=== PATIENT | female | born 1945 | race Caucasian/White ===

== ENCOUNTER 2019-10-06 12:11 | Emergency (ER) | payer MEDICARE, SELFPAY ==
[2019-10-06 12:12] VITALS: BP 131/74; PULSE 87; RESP 18; TEMP 36.3; O2SAT 98; BMI 25.0
--- NOTE | 2019-10-06 12:25 | ED_ITS ---
Entered by [id number], acting as scribe for Otis Luong DO Oct 06, 2019 12:11 HPI - Chest Pain General: Chief Complaint: Chest Pain Stated Complaint: chest pain Time Seen by Provider: 10/06/19 12:18 PFSH ED PFSH: Statuses (acute, chronic, etc) shown below reflect problem list status as previously entered and may not be historically accurate Medical History (Updated 10/06/19 @ 16:21 by Otis Luong DO) History of chronic hypertension (Acute) Surgical History (Updated 10/06/19 @ 12:41 by Judith Ramirez) History of tonsillectomy (Acute) Social History Smoking and tobacco status: former smoker Course Vital Signs: Vital signs: Vital Signs Temperature 97.4 F L 10/06/19 12:12 Pulse Rate 87 10/06/19 12:12 Respiratory Rate 18 10/06/19 12:12 Blood Pressure 131/74 10/06/19 12:12 Pulse Oximetry 98 10/06/19 12:12 MDM - Chest Pain Lab Data: Labs: Lab Results 10/06/19 10/06/19 10/06/19 Range/Units 13:03 13:03 13:03 WBC 9.6 (4.0-10.0) 10^3/ uL RBC 4.48 (4.1-5.3) 10^6/u L Hgb 13.6 (11.5-15.3) g/dL Hct 41.7 (37.0-47.0) % MCV 93.1 (81-99) fL MCH 30.4 (28.0-34.0) pg MCHC 32.6 (30.0-36.0) g/dL RDW 12.6 (12.1-15.1) % Plt Count 245 (130-400) 10^3/c mm MPV 10.5 H (7.4-10.4) fL Neut % (Auto) 71.4 % Lymph % (Auto) 21.3 % Cass % (Auto) 5.8 % Eos % (Auto) 0.7 % Baso % (Auto) 0.4 % Neut # (Auto) 6.8 (1.8-7.7) 10^3/u L Lymph # (Auto) 2.0 (0.8-4.8) 10^3/u L Cass # (Auto) 0.6 (0.2-0.9) 10^3/u L Eos # (Auto) 0.1 (0.0-0.8) 10^3/u L Baso # (Auto) 0.0 (0.0-0.1) 10^3/u L Nucleated RBC % (a uto) 0 % Nucleated RBCs # 0.0 /100WBC PT 13.10 (10.5-13.3) SECO NDS INR 0.99 (0.8-1.2) D-Dimer 0.68 H (0-0.59) ug/mIFE U Sodium 142 (136-145) mmol/L Potassium 4.2 (3.5-5.1) mmol/L Chloride 104 (98-107) mmol/L Carbon Dioxide 23 (22-29) mmol/L Anion Gap 19.2 H (5-19) BUN 28 H (8-23) mg/dL Creatinine 1.2 H (0.5-0.9) mg/dL Glucose 120 H (74-106) mg/dL Calcium 9.8 (8.5-10.5) mg/dL Total Bilirubin 0.3 (0.15-1.2) mg/dL AST 18 (0-32) U/L ALT 16 (0-33) U/L Alkaline Phosphata se 90 (35-105) IU/L Troponin T Baselin e (0-10) ng/mL Troponin T 120 Min kake (0-10) ng/mL Delta Troponin T (0-10) ABS# NT-Pro-B Natriuret Pep 137 (0-450) pg/mL Total Protein 8.3 (6.6-8.7) g/dL Albumin 4.4 (3.5-5.2) g/dL Globulin 3.9 (1.3-4.6) g/dL 10/06/19 10/06/19 Range/Units 13:03 15:40 WBC (4.0-10.0) 10^3/ uL RBC (4.1-5.3) 10^6/u L Hgb (11.5-15.3) g/dL Hct (37.0-47.0) % MCV (81-99) fL MCH (28.0-34.0) pg MCHC (30.0-36.0) g/dL RDW (12.1-15.1) % Plt Count (130-400) 10^3/c mm MPV (7.4-10.4) fL Neut % (Auto) % Lymph % (Auto) % Cass % (Auto) % Eos % (Auto) % Baso % (Auto) % Neut # (Auto) (1.8-7.7) 10^3/u L Lymph # (Auto) (0.8-4.8) 10^3/u L Cass # (Auto) (0.2-0.9) 10^3/u L Eos # (Auto) (0.0-0.8) 10^3/u L Baso # (Auto) (0.0-0.1) 10^3/u L Nucleated RBC % (a uto) % Nucleated RBCs # /100WBC PT (10.5-13.3) SECO NDS INR (0.8-1.2) D-Dimer (0-0.59) ug/mIFE U Sodium (136-145) mmol/L Potassium (3.5-5.1) mmol/L Chloride (98-107) mmol/L Carbon Dioxide (22-29) mmol/L Anion Gap (5-19) BUN (8-23) mg/dL Creatinine (0.5-0.9) mg/dL Glucose (74-106) mg/dL Calcium (8.5-10.5) mg/dL Total Bilirubin (0.15-1.2) mg/dL AST (0-32) U/L ALT (0-33) U/L Alkaline Phosphata se (35-105) IU/L Troponin T Baselin e 18 H (0-10) ng/mL Troponin T 120 Min kake 18.08 H (0-10) ng/mL Delta Troponin T 0.08 (0-10) ABS# NT-Pro-B Natriuret Pep (0-450) pg/mL Total Protein (6.6-8.7) g/dL Albumin (3.5-5.2) g/dL Globulin (1.3-4.6) g/dL Discharge Plan Discharge Clinical Impression: Chest pain Qualifiers: Chest pain type: unspecified Qualified Code(s): R07.9 - Chest pain, unspecified Condition: Stable Prescriptions: No Action Vitamin C 1,000 mg Tablet 500 mg PO DAILY RF: 0 Aspir-81 81 mg Tablet,Delayed Release (Dr/Ec) 81 mg PO DAILY RF: 0 amlodipine 10 mg tablet 10 mg PO DAILY RF: 0 hydrochlorothiazide 25 mg tablet 25 mg PO DAILY RF: 0 ergocalciferol (vitamin D2) 1,250 mcg (50,000 unit) capsule See Rx Instructions .ROUTE .COMPLEX RF: 0 olmesartan 40 mg tablet 40 mg PO DAILY RF: 0 Discharge Orders: Discharge Order (Routine); Ordered 10/06/19 Ordered By: Otis Luong Referrals: Suzie Hoffmann DO [Primary Care Provider] - Coding Level of Care Code ED Contact Lens Edge Buffer for [facility] The documentation recorded by the scribe, [id number], accurately reflects the service I personally performed and the decisions made by Ag palacios Donald P, DO Oct 06, 2019 12:11
--- NOTE | 2019-10-06 12:39 | ED_ITS ---
Entered by Judith Ramirez, acting as scribe for Otis Luong DO HPI - Chest Pain General: Chief Complaint: Chest Pain Stated Complaint: chest pain Time Seen by Provider: 10/06/19 12:18 Source: patient and family Mode of arrival: ambulatory Limitations: no limitations History of Present Illness: HPI narrative: 74 yo female presents with chest pain. 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 pt states exertion made this worse and sitting down made this better. MD complaint: chest pain Onset (ago): hour(s) (just correctional officer captain) Timing of current episode: constant and now resolved Prior episodes: No Onset: during exertion (shopping) Pain location: substernal Pain radiation: none Severity: moderate Quality: sharp Relieving factors: nothing Exacerbating factors: exertion Associated symptoms: Reports dyspnea and other Treatment prior to arrival: none Review of Systems General: Reports: 10 or more systems reviewed and unremarkable except in HPI and below Resp: Reports: shortness of breath PFSH ED PFSH: Statuses (acute, chronic, etc) shown below reflect problem list status as previously entered and may not be historically accurate Medical History (Updated 10/06/19 @ 16:21 by Otis Luong DO) History of chronic hypertension (Acute) Surgical History (Updated 10/06/19 @ 12:41 by Judith Ramirez) History of tonsillectomy (Acute) Social History Smoking and tobacco status: former smoker Physical Exam Const: COMMON NORMALS: no apparent distress, average body habitus, oriented x3, no limitations, healthy appearing, alert and well nourished HENMT: COMMON NORMALS: normocephalic, head/scalp atraumatic, hearing grossly normal bilaterally, external ears normal, EAC's normal, TM's normal bilaterally, external nose normal, nasal mucous membranes and turbinates normal, moist oral mucous membranes, oropharynx normal, dentition normal and gingiva normal HEAD & SCALP: normocephalic and atraumatic NOSE: external nose normal and nasal m ucous membranes and turbinates normal EXTERNAL EAR: Yes external ears normal EXTERNAL AUDITORY CANAL: EAC's normal TYMPANIC MEMBRANE: TM's normal bilaterally Eye: COMMON NORMALS: PERRL, EOMs intact bilaterally, conjunctivae normal, no scleral icterus, no papilledema, normal visual moran by confrontation and fundi normal bilaterally CONJUNCTIVA: Yes conjunctivae normal PUPIL: Yes PERRL DIRECT OPHTHALMOSCOPY: Yes no papilledema and Yes fundi normal bilaterally Neck/C-Spine: COMMON NORMALS: full ROM, no lymphadenopathy, supple, no meningeal signs, no JVD, thyroid normal and no carotid bruits THYROID: thyroid normal Resp: COMMON NORMALS: normal respiratory effort, no retractions, no use of accessory muscles, clear to auscultation bilaterally and percussion normal AUSCULTATION: clear to auscultation bilaterally PERCUSSION: percussion normal Cardio: COMMON NORMALS: no JVD, regular rate, regular rhythm, S1 normal heart sound, S2 normal heart sound, no gallops, no clicks, no murmurs, no rub and peripheral pulses 2+ throughout RATE: regular rate RHYTHM: regular rhythm HEART SOUNDS: S1 normal and S2 normal PERIPHERAL PULSES: pulses 2+ throughout GI: COMMON NORMALS: normal to inspection, nondistended, normoactive bowel sounds, soft to palpation, non-tender, no hepatosplenomegaly, no masses and no bruits PALPATION: Yes soft and Yes no hepatosplenomegaly : COMMON NORMALS: Yes no CVA tenderness and Yes external appearance normal BLADDER/KIDNEY EXAM: Yes no CVA tenderness Back/Pelvis: COMMON NORMALS: no CVA tenderness, thoracic and lumbar spine normal to inspection, no thoracic nor lumbar tenderness, thoraco-lumbar ROM normal and straight leg raise negative bilaterally Extremity: COMMON NORMALS: normal to inspection, full ROM, normal capillary refill, no joint enlargement, no clubbing, cyanosis or edema, no calf tenderness and no pedal edema Neuro: COMMON NORMALS: oriented x3 SENSORIUM/ORIENTATION: Yes alert MENINGEAL SIGNS: Yes no meningeal signs Skin: COMMON NORMALS: no rashes or lesions noted, no wounds, skin turgor normal, no jaundice, no petechiae and no mottling GENERAL SKIN EXAM: no rashes or lesions noted and turgor normal Course Vital Signs: Vital signs: Vital Signs Temperature 97.4 F L 10/06/19 12:12 Pulse Rate 87 10/06/19 12:12 Respiratory Rate 18 10/06/19 12:12 Blood Pressure 131/74 10/06/19 12:12 Pulse Oximetry 98 10/06/19 12:12 MDM - Chest Pain Lab Data: Labs: Lab Results 10/06/19 10/06/19 10/06/19 Range/Units 13:03 13:03 13:03 WBC 9.6 (4.0-10.0) 10^3/ uL RBC 4.48 (4.1-5.3) 10^6/u L Hgb 13.6 (11.5-15.3) g/dL Hct 41.7 (37.0-47.0) % MCV 93.1 (81-99) fL MCH 30.4 (28.0-34.0) pg MCHC 32.6 (30.0-36.0) g/dL RDW 12.6 (12.1-15.1) % Plt Count 245 (130-400) 10^3/c mm MPV 10.5 H (7.4-10.4) fL Neut % (Auto) 71.4 % Lymph % (Auto) 21.3 % Garden % (Auto) 5.8 % Eos % (Auto) 0.7 % Baso % (Auto) 0.4 % Neut # (Auto) 6.8 (1.8-7.7) 10^3/u L Lymph # (Auto) 2.0 (0.8-4.8) 10^3/u L [place] # (Auto) 0.6 (0.2-0.9) 10^3/u L Eos # (Auto) 0.1 (0.0-0.8) 10^3/u L Baso # (Auto) 0.0 (0.0-0.1) 10^3/u L Nucleated RBC % (a uto) 0 % Nucleated RBCs # 0.0 /100WBC PT 13.10 (10.5-13.3) SECO NDS INR 0.99 (0.8-1.2) D-Dimer 0.68 H (0-0.59) ug/mIFE U Sodium 142 (136-145) mmol/L Potassium 4.2 (3.5-5.1) mmol/L Chloride 104 (98-107) mmol/L Carbon Dioxide 23 (22-29) mmol/L Anion Gap 19.2 H (5-19) BUN 28 H (8-23) mg/dL Creatinine 1.2 H (0.5-0.9) mg/dL Glucose 120 H (74-106) mg/dL Calcium 9.8 (8.5-10.5) mg/dL Total Bilirubin 0.3 (0.15-1.2) mg/dL AST 18 (0-32) U/L ALT 16 (0-33) U/L Alkaline Phosphata se 90 (35-105) IU/L Troponin T Baselin e (0-10) ng/mL Troponin T 120 Min nina (0-10) ng/mL Delta Troponin T (0-10) ABS# NT-Pro-B Natriuret Pep 137 (0-450) pg/mL Total Protein 8.3 (6.6-8.7) g/dL Albumin 4.4 (3.5-5.2) g/dL Globulin 3.9 (1.3-4.6) g/dL 10/06/19 10/06/19 Range/Units 13:03 15:40 WBC (4.0-10.0) 10^3/ uL RBC (4.1-5.3) 10^6/u L Hgb (11.5-15.3) g/dL Hct (37.0-47.0) % MCV (81-99) fL MCH (28.0-34.0) pg MCHC (30.0-36.0) g/dL RDW (12.1-15.1) % Plt Count (130-400) 10^3/c mm MPV (7.4-10.4) fL Neut % (Auto) % Lymph % (Auto) % Garden % (Auto) % Eos % (Auto) % Baso % (Auto) % Neut # (Auto) (1.8-7.7) 10^3/u L Lymph # (Auto) (0.8-4.8) 10^3/u L [place] # (Auto) (0.2-0.9) 10^3/u L Eos # (Auto) (0.0-0.8) 10^3/u L Baso # (Auto) (0.0-0.1) 10^3/u L Nucleated RBC % (a uto) % Nucleated RBCs # /100WBC PT (10.5-13.3) SECO NDS INR (0.8-1.2) D-Dimer (0-0.59) ug/mIFE U Sodium (136-145) mmol/L Potassium (3.5-5.1) mmol/L Chloride (98-107) mmol/L Carbon Dioxide (22-29) mmol/L Anion Gap (5-19) BUN (8-23) mg/dL Creatinine (0.5-0.9) mg/dL Glucose (74-106) mg/dL Calcium (8.5-10.5) mg/dL Total Bilirubin (0.15-1.2) mg/dL AST (0-32) U/L ALT (0-33) U/L Alkaline Phosphata se (35-105) IU/L Troponin T Baselin e 18 H (0-10) ng/mL Troponin T 120 Min nina 18.08 H (0-10) ng/mL Delta Troponin T 0.08 (0-10) ABS# NT-Pro-B Natriuret Pep (0-450) pg/mL Total Protein (6.6-8.7) g/dL Albumin (3.5-5.2) g/dL Globulin (1.3-4.6) g/dL Discharge Plan Discharge Clinical Impression: Chest pain Qualifiers: Chest pain type: unspecified Qualified Code(s): R07.9 - Chest pain, unspecified Condition: Stable Prescriptions: No Action Vitamin C 1,000 mg Tablet 500 mg PO DAILY RF: 0 Aspir-81 81 mg Tablet,Delayed Release (Dr/Ec) 81 mg PO DAILY RF: 0 amlodipine 10 mg tablet 10 mg PO DAILY RF: 0 hydrochlorothiazide 25 mg tablet 25 mg PO DAILY RF: 0 ergocalciferol (vitamin D2) 1,250 mcg (50,000 unit) capsule See Rx Instructions .ROUTE .COMPLEX RF: 0 olmesartan 40 mg tablet 40 mg PO DAILY RF: 0 Discharge Orders: Discharge Order (Routine); Ordered 10/06/19 Ordered By: Otis Luong Referrals: Suzie Hoffmann DO [Primary Care Provider] - Coding Level of Care Code ED Hazardous Waste Technician for Chg Fwd Exam Problem Focused The documentation recorded by the James disla Bridget Annette, accurately reflects the service I personally performed and the decisions made by Ag palacios Donald P, DO Oct 06, 2019 12:11
--- NOTE | 2019-10-06 12:44 | XR_ITS ---
WS: [id number] Portable AP upright chest, 10/06/2019 Clinical Data: chest pain Comparison: Portable chest, 05/25/2019. Findings: No nodules, masses or effusions are seen. The heart is normal. The pulmonary vascularity is not increased. No pneumonia or pneumothorax is seen. The pacemaker generator overlaps the left later al lateral chest and the pacemaker wires wires are in the heart. The aortic arch and descending aorta show tortuosity. There is a monitor lead on the right chest wall. XR/XR chest 1V portable [id number] Impression: Atherosclerosis and permanent pacemaker.
--- NOTE | 2019-10-06 12:44 | ECG_ITS ---
Measurements Intervals [place] Rate: 79 P: 39 KS: 212 QRS: 266 QRSD: 174 T: 80 QT: 440 QTc: 507 ELECTRONIC VENTRICULAR PACEMAKER ABNORMAL RHYTHM ECG Compared to ECG 06/15/2018 20:32:29 No significant changes Electronically Signed On 10-06-2019 20:14:31 RN EMERGENCY ROOM by Serena Kuhn M.D. [id number] f
[2019-10-06 13:25] LABS: Basophils % 0.4 %; Eosinophils # 0.1 10^3/uL (0.0-0.8); Eosinophils % 0.7 %; Hematocrit 41.7 % (37.0-47.0); Hemoglobin 13.6 g/dL (11.5-15.3); Lymphocytes % 21.3 %; Mean Corpuscular HGB Conc 32.6 g/dL (30.0-36.0); Mean Corpuscular Hemoglobin 30.4 pg (28.0-34.0); Mean Corpuscular Volume 93.1 fL (81-99); Mean Platelet Volume 10.5 fL (7.4-10.4); Monocytes # 0.6 10^3/uL (0.2-0.9); Monocytes % 5.8 %; Neutrophils # 6.8 10^3/uL (1.8-7.7); Neutrophils % 71.4 %; Nucleated Red Blood Cells % 0 %; Platelet Count 245 10^3/cmm (130-400); Red Blood Count 4.48 10^6/uL (4.1-5.3); Red Cell Distribution Width 12.6 % (12.1-15.1); White Blood Count 9.6 10^3/uL (4.0-10.0)
[2019-10-06 13:42] LABS: D Dimer 0.68 ug/mIFEU (0-0.59); INR 0.99 (0.8-1.2)
[2019-10-06 13:45] LABS: Troponin(5th) Baseline 18 ng/mL (0-10)
[2019-10-06 13:54] LABS: Alanine Aminotransferase 16 U/L (0-33); Albumin Level 4.4 g/dL (3.5-5.2); Alkaline Phosphatase 90 IU/L (35-105); Anion Gap 19.2 (5-19); Aspartate Amino Transferase 18 U/L (0-32); Blood Urea Nitrogen 28 mg/dL (8-23); Calcium 9.8 mg/dL (8.5-10.5); Carbon Dioxide 23 mmol/L (22-29); Chloride 104 mmol/L (98-107); Creatinine Clr Calc Pharmacy 41.5493; Globulin 3.9 g/dL (1.3-4.6); Glucose 120 mg/dL (74-106); NT Pro B Type Natriuretic Pept 137 pg/mL (0-450); Potassium 4.2 mmol/L (3.5-5.1); Sodium 142 mmol/L (136-145); Total Bilirubin 0.3 mg/dL (0.15-1.2); Total Protein 8.3 g/dL (6.6-8.7)
--- NOTE | 2019-10-06 14:44 | ECG_ITS ---
Measurements Intervals [place] Rate: 78 P: 25 MA: 216 QRS: -88 QRSD: 165 T: 81 QT: 433 QTc: 494 ELECTRONIC VENTRICULAR PACEMAKER ABNORMAL RHYTHM ECG Compared to ECG 06/15/2018 20:32:29 No significant changes Electronically Signed On 10-06-2019 20:17:35 SUPERINTENDENT MAINTENANCE by Serena Kuhn M.D. [id number]
--- NOTE | 2019-10-06 15:34 | PC.NURSE ---
Waiting on lab to draw 2d troponin
[2019-10-06 15:59] LABS: Troponin 5 2HR 18.08 ng/mL (0-10); Troponin 5 2HR Delta 0.08 ABS# (0-10)
[2019-10-06 16:54] VITALS: PULSE 108; RESP 16; O2SAT 96
--- NOTE | 2019-10-06 16:55 | PC.NURSE ---
Pt without any reoccurence of pain during stay in the ER
--- NOTE | 2019-10-06 20:17 | ECG_ITS ---
Measurements Intervals [place] Rate: 78 P: 25 KS: 216 QRS: -88 QRSD: 165 T: 81 QT: 433 QTc: 494 ELECTRONIC VENTRICULAR PACEMAKER ABNORMAL RHYTHM ECG Compared to ECG 06/15/2018 20:32:29 No significant changes [id number]
== END 2019-10-06 16:54 | disposition home or self-care (01) ==
PROVIDERS: Emergency Provider Family Medicine; Family Provider Family Medicine; PCP Family Medicine
DX: R07.9 Chest pain, unspecified (principal); I10 Essential (primary) hypertension; Z87.891 Personal history of nicotine dependence; Z95.0 Presence of cardiac pacemaker
CPT/HCPCS: 36415; 71045; 80053; 83880; 84484; 85025; 85378; 85610; 93005; 99282; 99284

== ENCOUNTER 2020-07-06 18:46 | Emergency (ER) | payer MEDICARE, SELFPAY ==
[2020-07-06 19:08] VITALS: BP 128/74; PULSE 106; RESP 17; TEMP 36.3; O2SAT 96; BMI 24.4
--- NOTE | 2020-07-06 19:24 | ED_ITS ---
HPI - Wound/Laceration General: Chief Complaint: Wound/Laceration Stated Complaint: lac on left hip Time Seen by Provider: 07/06/20 19:20 History of Present Illness: HPI narrative: Patient slipped off in the couch and landed on picture frame and ended up cutting her left buttock just minutes ago Onset (ago): minute(s) Location: other (Buttock left) Place: home Patient tetanus UTD: No Context: accidental Associated symptoms: Reports no associated symptoms; Denies chills or fever(s) Treatments prior to arrival: bandage Review of Systems Const: Denies: fever(s) or chills Skin/Breast: Reports: other (Laceration left buttock) Psych: Denies: anxiety or depression PFS ED PFSH: Medical History (Updated 07/06/20 @ 19:34 by MECHELLE Mendez) Atypical chest pain Benign essential HTN Chronic kidney disease CKD (chronic kidney disease) Edema, peripheral History of chronic hypertension Nausea Pacemaker Pacemaker Surgical History History of tonsillectomy Family History Other Unknown family medical history Social History Smoking and tobacco status: former smoker Alcohol intake: never Physical Exam Const: COMMON NORMALS: no acute distress Extremity: COMMON NORMALS: normal to inspection and full ROM Psych: COMMON NORMALS: mental status grossly normal Skin: OTHER: Has a large laceration left buttock near the anal area no active bleeding Procedures Laceration Laceration 1: Site: other (Buttock) Side (If applicable): left Size (cm): 12 Description: linear Depth: simple, single layer Local Anesthetic: lidocaine 1% and with epi Pre-repair: wound explored, irrigated extensively and deep structures intact Skin layer closed with: other ([place] 12) Course Vital Signs: Vital signs: Vital Signs Temperature 97.4 F L 07/06/20 19:08 Pulse Rate 106 H 07/06/20 19:08 Respiratory Rate 17 07/06/20 19:08 Blood Pressure 128/74 07/06/20 19:08 Pulse Oximetry 96 07/06/20 19:08 Discharge Plan Discharge Patient Disposition: Home Clinical Impression: Laceration Condition: Stable Prescriptions: No Action Vitamin C 1,000 mg Tablet 500 mg PO DAILY RF: 0 Aspir-81 81 mg Tablet,Delayed Release (Dr/Ec) 81 mg PO DAILY RF: 0 amlodipine 10 mg tablet 10 mg PO DAILY RF: 0 hydrochlorothiazide 25 mg tablet 25 mg PO DAILY RF: 0 ergocalciferol (vitamin D2) 1,250 mcg (50,000 unit) capsule See Rx Instructions .ROUTE .COMPLEX RF: 0 olmesartan 40 mg tablet 40 mg PO DAILY RF: 0 Discharge Orders: Discharge Order (Routine); Ordered 07/06/20 Ordered By: Jewel Mancuso Referrals: Suzie Hoffmann DO [Primary Care Provider] - Discharge Diet: Usual diet Discharge Activity: Resume usual activity Patient Instructions: Staple Care (ED) Activity Restrictions/Additional Instructions: Remove remigio in 7 days follow-up your family medical provider watch for signs symptoms of infection that develops follow-up with your provider or return to the emergency department keep area clean use Vaseline petroleum jelly to keep moist Coding Level of Care Code ED Sunglass Clip Attacher for [place] Fw[place] Exam Expanded Problem Focused
[2020-07-06] MEDS: tetanus-dipt-pertussis 0.5 mL SDV IM (19:52)
== END 2020-07-06 19:57 | disposition home or self-care (01) ==
PROVIDERS: Emergency Provider Nurse Practitioner Family; PCP Family Medicine
DX: S31.821A Laceration without foreign body of left buttock, initial encounter (principal); W01.110A Fall on same level from slipping, tripping and stumbling with subsequent striking against sharp glass, initial encounter; I10 Essential (primary) hypertension; Z95.0 Presence of cardiac pacemaker; Z87.891 Personal history of nicotine dependence; Z23 Encounter for immunization
CPT/HCPCS: 12004; 12345; 90471; 90715; 99281; 99282

== ENCOUNTER 2020-07-20 10:08 | Outpatient (CLI) | payer MEDICARE, SELFPAY ==
[2020-07-20 10:46] LABS: Basophils % 0.3 %; Eosinophils # 0.1 10^3/uL (0.0-0.8); Hemoglobin 14.3 g/dL (11.5-15.3); Lymphocytes # 2.9 10^3/uL (0.8-4.8); Lymphocytes % 30.8 %; Mean Corpuscular HGB Conc 32.5 g/dL (30.0-36.0); Mean Corpuscular Hemoglobin 31.4 pg (28.0-34.0); Mean Corpuscular Volume 96.5 fL (81-99); Monocytes # 0.5 10^3/uL (0.2-0.9); Monocytes % 5.5 %; Neutrophils # 5.81 10^3/uL (1.8-7.7); Neutrophils % 62.1 %; Nucleated Red Blood Cells % 0 %; Platelet Count 303 10^3/cmm (130-400); Red Blood Count 4.56 10^6/uL (4.1-5.3); Red Cell Distribution Width 12.5 % (12.1-15.1); White Blood Count 9.4 10^3/uL (4.0-10.0)
[2020-07-20 11:04] LABS: Albumin Level 4.8 g/dL (3.5-5.2); Blood Urea Nitrogen 31 mg/dL (8-23); Carbon Dioxide 24 mmol/L (22-29); Chloride 103 mmol/L (98-107); Glucose 110 mg/dL (65-115); Phosphorus 3.5 mg/dL (2.5-4.5); Sodium 140 mmol/L (136-145)
[2020-07-20 11:13] LABS: Calcium 10.2 mg/dL (8.5-10.5)
[2020-07-20 11:23] LABS: Creatinine Urine, Random 20 mg/dL (28-217)
[2020-07-20 11:24] LABS: Microalbum Creatinine Ratio Ur 50 mg/dL (0-20); Microalbumin Random Urine 1 ug/dL (0-20)
[2020-07-20 12:03] LABS: Parathyroid Hormone 77.6 pg/mL (15-65)
== END 2020-07-20 10:09 | disposition home or self-care (01) ==
LOC: LAB 10:26
PROVIDERS: PCP Family Medicine; Visit Provider Internal Medicine Nephrology
DX: N18.30 Chronic kidney disease, stage 3 unspecified (principal)
CPT/HCPCS: 36415; 80069; 82044; 82310; 83970; 85025

== ENCOUNTER 2021-06-23 08:42 | Outpatient (CLI) | payer MEDICARE, SELFPAY ==
[2021-06-23 09:18] LABS: Basophils % 0.4 %; Eosinophils # 0.1 10^3/uL (0.0-0.8); Hematocrit 44.8 % (37.0-47.0); Hemoglobin 14.6 g/dL (11.5-15.3); Lymphocytes # 3.1 10^3/uL (0.8-4.8); Lymphocytes % 33.5 %; Mean Corpuscular HGB Conc 32.6 g/dL (30.0-36.0); Mean Corpuscular Hemoglobin 31.1 pg (28.0-34.0); Mean Corpuscular Volume 95.3 fl (81-99); Mean Platelet Volume 9.7 fL (7.4-10.4); Monocytes # 0.6 10^3/uL (0.2-0.9); Monocytes % 6.8 %; Neutrophils # 5.37 10^3/uL (1.8-7.7); Neutrophils % 58.1 %; Nucleated Red Blood Cells % 0 %; Platelet Count 323 10^3/cmm (130-400); Red Cell Distribution Width 12.4 % (12.1-15.1); White Blood Count 9.3 10^3/uL (4.0-10.0)
[2021-06-23 09:40] LABS: Albumin Level 4.6 g/dL (3.5-5.2); Blood Urea Nitrogen 32 mg/dL (8-23); Calcium 9.9 mg/dL (8.5-10.5); Carbon Dioxide 27 mmol/L (22-29); Chloride 100 mmol/L (98-107); Glucose 107 mg/dL (65-115); Phosphorus 3.2 mg/dL (2.5-4.5); Sodium 138 mmol/L (136-145)
[2021-06-23 09:52] LABS: Creatinine Urine, Random 47 mg/dL (28-217)
[2021-06-23 10:01] LABS: Microalbum Creatinine Ratio Ur 21 mg/dL (0-20)
[2021-06-23 10:02] LABS: Microalbumin Random Urine < 1 ug/dL (0-20)
[2021-06-23 12:07] LABS: Parathyroid Hormone 60.3 pg/mL (15-65)
== END 2021-06-23 08:43 | disposition home or self-care (01) ==
PROVIDERS: PCP Family Medicine; Visit Provider Internal Medicine Nephrology
DX: N18.32 Chronic kidney disease, stage 3b (principal)
CPT/HCPCS: 36415; 80069; 82044; 82310; 83970; 85025

== ENCOUNTER → 2021-07-06 12:14 | Outpatient (BNVA) | payer MEDICARE, SELFPAY | PROVIDERS: PCP Family Medicine; Visit Provider Nurse Practitioner Family | DX: Z20.822 Contact with and (suspected) exposure to COVID-19 (principal) | CPT/HCPCS: 87635 ==

== ENCOUNTER 2021-07-16 16:28 | Emergency (ER) | payer MEDICARE, SELFPAY ==
[2021-07-16 16:34] VITALS: PULSE 97; RESP 20; O2SAT 98; BMI 23.5
[2021-07-16 17:14] VITALS: BP 107/67; PULSE 84; O2SAT 97
--- NOTE | 2021-07-16 17:29 | ECG_ITS ---
[facility] Test Date: 2021-07-16 Pat Name: Harmony Santoro Department: Room: Gender: Female Rock Worker: : 1945 Requested By: Luis Enrique De La Vega Order Number: [id number] Srikanth MD: Yajaira Fuentes M.D. Measurements Intervals [place] Rate: 86 P: 63 W[place]: 235 QRS: -83 QRSD: 174 T: 86 QT: 430 QTc: 515 Interpretive Statements A sensed V paced rhythm ELECTRONIC VENTRICULAR PACEMAKER Compared to ECG 10/06/2019 15:10:12 No significant changes Electronically Signed On 07-18-2021 12:43:07 POLICY WRITER TYPIST by Yajaira Fuentes M.D. [id number] f
--- NOTE | 2021-07-16 17:29 | XRR_ITS ---
PROCEDURE INFORMATION: Exam: XR Left Foot Exam date and time: 07/16/2021 5:29 PM Age: 76 years old Clinical indication: Pain; Foot; Left; Additional info: 1st mt pain TECHNIQUE: Imaging protocol: XR Left foot. Views: 3 or more views. COMPARISON: No relevant prior studies available. FINDINGS: Bones/joints: Mild 1st metatarsophalangeal joint osteoarthritis. Soft tissues: Normal. XR/XR foot LT min 3V* [id number] IMPRESSION: Mild 1st metatarsophalangeal joint osteoarthritis. Radiation Dose CTDIVOL = (mGy): DLP = (mGy-cm)
--- NOTE | 2021-07-16 17:29 | XRR_ITS ---
PROCEDURE INFORMATION: Exam: XR Chest Exam date and time: 07/16/2021 5:29 PM Age: 76 years old Clinical indication: Chest wall pain; Additional info: Chest pain TECHNIQUE: Imaging protocol: XR of the chest. Views: 1 view. COMPARISON: CR XR chest 1V portable [id number] 10/06/2019 1:12 PM FINDINGS: Tubes, catheters and devices: Pacemaker. Lungs: Unremarkable. No consolidation. Pleural spaces: Unremarkable. No pleural effusion. No pneumothorax. Heart/Mediastinum: Unremarkable. No cardiomegaly. Bones/joints: Unremarkable. XR/XR chest 1V portable [id number] IMPRESSION: Negative for infiltrate Radiation Dose CTDIVOL = (mGy): DLP = (mGy-cm)
[2021-07-16 17:43] VITALS: BP 96/57; PULSE 83; O2SAT 95
--- NOTE | 2021-07-16 17:45 | ED_ITS ---
HPI - Chest Pain General: Chief Complaint: Chest Pain Stated Complaint: TROUBLE BREATHING Time Seen by Provider: 07/16/21 17:09 History of Present Illness: HPI narrative: This patient presents to our emergency department because of concerns about a couple of different items. She states over the past week or so she has been having some vague symptoms that necessitated her getting a Covid test last week which was negative. She states that she is now having some chest discomfort when she changes positions or takes a deep breath. She denies any cough or fevers. She is been eating and drinking normally. She is not any palpitations or irregular heartbeat. She does have a history of a pacemaker but no known coronary disease and no prior history of heart failure etc. She has not been exposed any one has been ill. She has been eating and drinking normally. She is also developed pain and redness to her left great toe over the last couple of days without any known injury. She is not had a history of gout that she is aware. She is a non-smoker or at least has not smoked for 40 years. MD complaint: chest pain Exacerbating factors: inspiration and movement Associated symptoms: Reports no associated symptoms and fever(s); Deny abdominal pain, dyspnea, nausea, syncope or vomiting Review of Systems Const: Reports: fever(s); Denies: chills or body aches Eyes: Denies: change in vision ENMT: Denies: throat pain, odynophagia, change in hearing or nasal congestion Card: Denies: irregular heart rhythm, swelling of feet/ankles or syncope Resp: Denies: dyspnea, productive cough or non-productive cough GI: Denies: abdominal pain, nausea or vomiting : Denies: flank pain, difficulty voiding, dysuria or urinary frequency Musc: Reports: extremity pain and joint redness; Denies: neck pain or back pain Skin/Breast: Reports: erythema; Denies: rash, pruritus or skin swelling Neuro: Denies: headache(s), numbness in extremities, weakness in extremities or sensory changes Psych: Denies: anxiety, depression or mood swings Endo: Denies: polyuria, polydipsia or tired all the time Yo/Lymph: Denies: easy bruising or easy bleeding PFS ED PFSH: Medical History (Updated 07/16/21 @ 21:04 by Luis Enrique De La Vega DO) Atypical chest pain Benign essential HTN Chronic kidney disease CKD (chronic kidney disease) Edema, peripheral History of chronic hypertension Nausea Pacemaker Pacemaker Surgical History History of tonsillectomy Family History Other Unknown family medical history Social History Smoking and tobacco status: former smoker Alcohol intake: never Physical Exam Const: COMMON NORMALS: no acute distress, average body habitus, patient oriented x3 and healthy appearing ORIENTATION/CONSCIOUSNESS: Yes awake HENMT: COMMON NORMALS: normocephalic, moist oral mucous membranes and oropharynx normal HEAD & SCALP: normal to inspection and normocephalic Eye: COMMON NORMALS: Equal, round and reactive pupils present, EOMs intact bilaterally, conjunctivae normal and no scleral icterus CONJUNCTIVA: Yes conjunctivae normal PUPIL: Yes Equal, round and reactive pupils present Neck/C-Spine: COMMON NORMALS: full ROM, supple, no JVD, Thyroid normal and No carotid bruits THYROID: Thyroid normal Lymph: LYMPHATIC: no lymphadenopathy noted Chest: COMMONS NORMALS: normal inspection of the chest OTHER: She has some exacerbation of symptoms with hyper extension of her arms against resistance as well as palpation over the anterior chest. No crepitance or ecchymosis noted. Resp: COMMON NORMALS: normal respiratory effort, No retractions, No use of accessory muscles and clear to auscultation bilaterally AUSCULTATION: clear to auscultation bilaterally Cardio: COMMON NORMALS: no JVD, regular rate, No murmurs present (Cardio) and Peripheral pulses 2+ throughout RATE: regular rate PERIPHERAL PULSES: Peripheral pulses 2+ throughout GI: COMMON NORMALS: Normal to inspection, nondistended, normoactive bowel sounds present, Soft to palpation, non-tender and no masses PALPATION: Yes Soft to palpation : COMMON NORMALS: Yes no CVA tenderness BLADDER/KIDNEY EXAM: Yes no CVA tenderness Back/Pelvis: COMMON NORMALS: no CVA tenderness, thoracic and lumbar spine normal to inspection and no thoracic nor lumbar tenderness Extremity: GENERAL: Yes normal exam except as noted LEFT LOWER EXTREMITY: Yes foot & digits (She has erythema over the first metatarsal joint of the left foot. No prox) Neuro: COMMON NORMALS: patient oriented x3 Course Reevaluation(s): Reevaluation #1: Patient's repeat troponin is less than her initial troponin. I think her troponin elevations are unlikely to represent myocardial ischemia. Her EKG is sterile fashion do not show any acute changes suggestive of ongoing myocardial ischemia. She is not having any ongoing chest pain other than that which is reproducible by deep breaths and/or movement of her chest wall. She has had a diminishment of renal function over the past year as evidenced by her creatinine now 2. I think this is likely a contributing factor to her elevated high-sensitivity troponin as well. Due to decreased clearance. This is likely also the reason that she has developed gout in her left toe as evidenced by her clinical appearance as well as her uric acid levels this evening. At this point I think it is reasonable for us to treat her for her acute gout and also continue her other medication profile. I do not feel that she needs additional evaluation and admission for any chest pain work-up this evening but certainly this may be indicated in the future. Feel that she is stable. We will discuss all findings in detail with the patient and spouse as well as return precautions. They voiced understanding of discussion. Stable for discharge. Additional information after discussing the above with the patient and spouse. She relates that she has been concerned about her blood pressure being significantly lower than it has in the past. States that numbers have been in the 100-1 10 range systolic. She states is normally in the 120 range. Given this fact in addition to her elevating creatinine I think we probably should hold her hydrochlorothiazide for the short term until she follows up with her doctor to reevaluate her pressure as well as her renal function. This may also be contributing to her fatigue and certainly may be a contributing factor in her hyperuricemia as well. Vital Signs: Vital signs: Vital Signs Pulse Rate 83 07/16/21 17:43 Respiratory Rate 20 H 07/16/21 16:34 Blood Pressure 96/57 07/16/21 17:43 Pulse Oximetry 95 07/16/21 17:43 MDM - Chest Pain Lab Data: Labs: Lab Results 07/16/21 07/16/21 07/16/21 17:05 17:05 17:05 WBC 8.5 10^3/uL 10^3/ uL (4.0-10.0) RBC 4.46 10^6/uL 10^6 /uL (4.1-5.3) Hgb 13.8 g/dL g/dL (11.5-15.3) Hct 41.9 % % (37.0-47.0) MCV 93.9 fl fl (81-99) MCH 30.9 pg pg (28.0-34.0) MCHC 32.9 g/dL g/dL (30.0-36.0) RDW 12.8 % % (12.1-15.1) Plt Count 370 10^3/cmm 10^3 /cmm (130-400) MPV 10.3 fL fL (7.4-10.4) Neut % (Auto) 67.5 % % Lymph % (Auto) 22.6 % % [place] % (Auto) 8.5 % % Eos % (Auto) 0.4 % % Baso % (Auto) 0.6 % % Neut # (Auto) 5.75 10^3/uL 10^3 /uL (1.8-7.7) Lymph # (Auto) 1.9 10^3/uL 10^3/ uL (0.8-4.8) [place] # (Auto) 0.7 10^3/uL 10^3/ uL (0.2-0.9) Eos # (Auto) 0.0 10^3/uL 10^3/ uL (0.0-0.8) Baso # (Auto) 0.1 10^3/uL 10^3/ uL (0.0-0.1) Nucleated RBC % (a uto) 0 % % Nucleated RBCs # 0.0 /100WBC /100W BC Sodium 137 mmol/L mmol/L (136-145) Potassium 4.4 mmol/L mmol/L (3.5-5.1) Chloride 97 mmol/L L mmol/ L (98-107) Carbon Dioxide 22 mmol/L mmol/L (22-29) Anion Gap 22.4 H (5-19) BUN 40 mg/dL H mg/dL (8-23) Creatinine 2.0 mg/dL H mg/dL (0.5-0.9) GFR Calculation Not Reportable Glucose 133 mg/dL H mg/dL (65-115) Calculated Osmolal ity 296 mOsm/kg H mOs m/kg (285-295) Uric Acid 9.2 mg/dL H mg/dL (2.4-5.7) Calcium 9.8 mg/dL mg/dL (8.5-10.5) Troponin T Baselin e 35 ng/L H ng/L (0-10) Troponin T 120 Min [place] Delta Troponin T 07/16/21 19:28 WBC RBC Hgb Hct MCV MCH MCHC RDW Plt Count MPV Neut % (Auto) Lymph % (Auto) [place] % (Auto) Eos % (Auto) Baso % (Auto) Neut # (Auto) Lymph # (Auto) [place] # (Auto) Eos # (Auto) Baso # (Auto) Nucleated RBC % (a uto) Nucleated RBCs # Sodium Potassium Chloride Carbon Dioxide Anion Gap BUN Creatinine GFR Calculation Glucose Calculated Osmolal ity Uric Acid Calcium Troponin T Baselin e Troponin T 120 Min [place] 32.53 ng/L H ng/L (0-10) Delta Troponin T -2.47 ABS# L ABS# (0-10) Imaging Data^: Other Imaging: Radiologist's impression: I reviewed radiology reports from foot x-ray as well as chest x-ray. Foot x-ray reveals first metatarsal osteoarthritis. Chest x- ray reveals no acute disease. EKG Data^: EKG 1: Attestation: I personally reviewed and interpreted this EKG as follows: (Ventricular rate of 86 bpm with paced rhythm. 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, left ankle and foot Condition: Stable Prescriptions: New prednisone 20 mg tablet 20 mg PO BID 7 Days Qty: 14 RF: 0 No Action aspirin [Aspir-81] 81 mg Tablet,Delayed Release (Dr/Ec) 81 mg PO DAILY RF: 0 amlodipine 10 mg tablet 10 mg PO DAILY RF: 0 hydrochlorothiazide 25 mg tablet 25 mg PO DAILY RF: 0 ergocalciferol (vitamin D2) 1,250 mcg (50,000 unit) capsule See Rx Instructions .ROUTE .COMPLEX RF: 0 olmesartan 40 mg tablet 40 mg PO DAILY RF: 0 Discharge Orders: Discharge ED (Routine); Ordered 07/16/21 Ordered By: Luis Enrique De La Vega Referrals: Suzie Hoffmann DO [Primary Care Provider] - Discharge Diet: Low Salt Discharge Activity: Increase activity as tolerated Patient Instructions: Low Purine Diet (ED), Gout (ED), Opioid Safety Activity Restrictions/Additional Instructions: Stop your hydrochlorothiazide and monitor your blood pressure 2-3 times weekly and record those numbers. Continue all your other usual medication. We have prescribed prednisone to take for the next 7 days for your gout. Call your primary care doctor to arrange a follow-up appointment for repeat kidney function and reassessment of your blood pressure. If you have worsening symptoms such as prolonged chest pain, fever, any other concerns return to this or the nearest emergency department. 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
[2021-07-16 17:51] LABS: Basophils # 0.1 10^3/uL (0.0-0.1); Basophils % 0.6 %; Eosinophils % 0.4 %; Hematocrit 41.9 % (37.0-47.0); Hemoglobin 13.8 g/dL (11.5-15.3); Lymphocytes # 1.9 10^3/uL (0.8-4.8); Lymphocytes % 22.6 %; Mean Corpuscular HGB Conc 32.9 g/dL (30.0-36.0); Mean Corpuscular Hemoglobin 30.9 pg (28.0-34.0); Mean Corpuscular Volume 93.9 fl (81-99); Mean Platelet Volume 10.3 fL (7.4-10.4); Monocytes # 0.7 10^3/uL (0.2-0.9); Monocytes % 8.5 %; Neutrophils # 5.75 10^3/uL (1.8-7.7); Neutrophils % 67.5 %; Nucleated Red Blood Cells % 0 %; Platelet Count 370 10^3/cmm (130-400); Red Blood Count 4.46 10^6/uL (4.1-5.3); Red Cell Distribution Width 12.8 % (12.1-15.1); White Blood Count 8.5 10^3/uL (4.0-10.0)
[2021-07-16 18:13] LABS: Anion Gap 22.4 (5-19); Blood Urea Nitrogen 40 mg/dL (8-23); Calcium 9.8 mg/dL (8.5-10.5); Carbon Dioxide 22 mmol/L (22-29); Chloride 97 mmol/L (98-107); Glucose 133 mg/dL (65-115); Osmolality Calculated 296 mOsm/kg (285-295); Potassium 4.4 mmol/L (3.5-5.1); Sodium 137 mmol/L (136-145); Uric Acid 9.2 mg/dL (2.4-5.7)
[2021-07-16] MEDS: aspirin 81 mg Chew Tablet 324 MG PO (18:13)
[2021-07-16 18:14] LABS: Troponin(5th) Baseline 35 ng/L (0-10)
--- NOTE | 2021-07-16 19:29 | ECG_ITS ---
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 Measurements Intervals [place] Rate: 82 P: 69 [place]: 228 QRS: 266 QRSD: 166 T: 83 QT: 422 QTc: 493 Interpretive Statements A sensed V paced rhythm ELECTRONIC VENTRICULAR PACEMAKER ABNORMAL RHYTHM ECG Compared to ECG 07/16/2021 16:46:33 No significant changes Electronically Signed On 07-18-2021 13:06:45 HANDLE BAR ASSEMBLER by Yajaira Fuentes M.D. [id number]
[2021-07-16 19:58] LABS: Troponin 5 2HR 32.53 ng/L (0-10)
[2021-07-16 20:00] LABS: Troponin 5 2HR Delta -2.47 ABS# (0-10)
[2021-07-16 21:39] VITALS: BP 132/78; PULSE 86; RESP 18; O2SAT 97
== END 2021-07-16 21:40 | disposition home or self-care (01) ==
PROVIDERS: Emergency Provider Emergency Medicine; PCP Family Medicine
DX: R07.89 Other chest pain (principal); M10.372 Gout due to renal impairment, left ankle and foot; I12.9 Hypertensive chronic kidney disease with stage 1 through stage 4 chronic kidney disease, or unspecified chronic kidney disease; N18.9 Chronic kidney disease, unspecified; Z79.82 Long term (current) use of aspirin; Z95.0 Presence of cardiac pacemaker; Z87.891 Personal history of nicotine dependence
CPT/HCPCS: 71045; 73630; 80048; 84484; 84550; 85025; 93005; 99284

== ENCOUNTER → 2022-01-05 10:49 | Outpatient (BNVA) | payer MEDICARE, SELFPAY | PROVIDERS: PCP Family Medicine; Visit Provider Internal Medicine Cardiovascular Disease | DX: Z45.010 Encounter for checking and testing of cardiac pacemaker pulse generator [battery] (principal) | CPT/HCPCS: 93280 ==

== ENCOUNTER → 2022-06-07 09:16 | Outpatient (BNVA) | payer MEDICARE, SELFPAY | PROVIDERS: PCP Family Medicine; Visit Provider Internal Medicine Cardiovascular Disease | DX: I12.9 Hypertensive chronic kidney disease with stage 1 through stage 4 chronic kidney disease, or unspecified chronic kidney disease (principal); F17.200 Nicotine dependence, unspecified, uncomplicated; N18.9 Chronic kidney disease, unspecified; I95.1 Orthostatic hypotension; Z95.0 Presence of cardiac pacemaker; R60.9 Edema, unspecified | CPT/HCPCS: 99213; 99214 ==

== ENCOUNTER 2023-03-31 15:33 | Emergency (ER) | payer MEDICARE, SELFPAY ==
[2023-03-31 15:36] VITALS: BP 138/72; PULSE 72; RESP 15; TEMP 36.2; O2SAT 97
--- NOTE | 2023-03-31 15:36 | XRR_ITS ---
PROCEDURE INFORMATION: Exam: XR Chest Exam date and time: 03/31/2023 3:45 PM Age: 78 years old Clinical indication: Other: Near syncope TECHNIQUE: Imaging protocol: Radiologic exam of the chest. Views: 1 view. COMPARISON: CR XR chest 1V portable [id number] 07/16/2021 5:34 PM FINDINGS: Tubes, catheters and devices: Left chest wall dual chamber cardiac device remains in place. Lungs: The lung bases are suboptimally assessed due to technique however the upper lungs are clear of focal consolidation. Stable minimal streaky opacities in the left base, likely scarring. Pleural spaces: Unremarkable. No pleural effusion. No pneumothorax. Heart/Mediastinum: Cardiac silhouette appears normal in size. No obvious vascular congestion. Diaphragm: Air density underneath the right hemidiaphragm similar to prior exam suggesting interposition of bowel loops. Bones/joints: No acute osseous findings. Probable osteopenia. Other findings: Single view was submitted. XR/XR chest 1V portable [id number] IMPRESSION: No obvious acute consolidation. Suboptimal lung base assessment. Followup including lateral view may be obtained if clinically indicated.
--- NOTE | 2023-03-31 15:36 | ED_ITS ---
HPI - General Adult General: Chief complaint: Syncope Stated complaint: near syncope Time Seen by Provider: 03/31/23 15:35 History of Present Illness: Ms. Cloud is an 78-year-old lady with history of hypertension, CKD, pacemaker presenting the emergency department for evaluation of syncopal episode. She reports being at her baseline health and went into town to tow picker groceries. When she returned home she was standing in her driveway visiting with old friends when she had sudden onset of a loopy feeling and had to be caught by her family. She does not think that she truly lost consciousness but family thinks that she does. Had associated nausea and warm feeling as well as diaphoresis. Currently feels mildly improved but still feels slightly off. Onset (ago): minute(s) Relieving factors: rest Review of Systems General: Reports: 10 or more systems reviewed and unremarkable except in HPI and below PFSH ED PFSH: Medical History Atypical chest pain Benign essential HTN Chronic kidney disease CKD (chronic kidney disease) Edema, peripheral History of chronic hypertension Nausea Pacemaker Pacemaker Surgical History History of tonsillectomy Family History Other Unknown family medical history Social History Smoking and tobacco status: current every day smoker Alcohol intake: never Substance/Drug Use: never Physical Exam Const: COMMON NORMALS: patient oriented x3 and alert GENERAL APPEARANCE: cooperative and well developed HENMT: COMMON NORMALS: normocephalic and atraumatic HEAD & SCALP: normocephalic and atraumatic THROAT: posterior oropharynx normal Eye: COMMON NORMALS: conjunctivae normal CONJUNCTIVA: Yes conjunctivae normal SCLERA: sclerae normal Neck/C-Spine: COMMON NORMALS: supple GENERAL: Yes trachea midline Resp: COMMON NORMALS: normal respiratory effort EFFORT & INSPECTION: Yes able to speak in complete sentences Cardio: COMMON NORMALS: regular rate and regular rhythm RATE: regular rate RHYTHM: regular rhythm GI: COMMON NORMALS: Soft to palpation PALPATION: Yes Soft to palpation and No Tenderness to palpation present (GI) PERCUSSION: normal to percussion Extremity: GENERAL: Yes normal exam except as noted and No edema Neuro: COMMON NORMALS: patient oriented x3, CN's II-XII intact bilaterally, moves all extremities, no focal motor deficits and no sensory deficits noted SENSORIUM/ORIENTATION: Yes alert and No Orientation impaired Psych: COMMON NORMALS: mental status grossly normal and Normal thought process present THOUGHT PROCESS: Normal thought process present Course Vital Signs: Vital signs: Vital Signs Temperature 97.2 F L 03/31/23 15:36 Pulse Rate 83 03/31/23 19:02 Respiratory Rate 16 03/31/23 19:02 Blood Pressure 116/74 03/31/23 19:02 Pulse Oximetry 95 03/31/23 19:02 Oxygen Delivery Me thod Room Air 03/31/23 18:02 [facility] - General Adult Medical Decision Making 78-year-old lady presenting with syncope. Head to toe exam performed. No new focal neurologic deficits. Nontoxic. EKG demonstrates ventricularly paced rhythm. Labs with mild leukocytosis and hemoconcentration. Metabolic panel with mild evidence of metabolic stress. Negative range 2-hour delta troponin. No convincing evidence of UTI given lack of symptoms and squamous epithelial contamination. Chest x-ray with no lobar consolidation or pneumothorax. CT head negative for acute pathology. On reassessment patient continues to feel improved. I discussed possible etiologies and uncertain nature of reasoning for episode. I discussed disposition options and patient is comfortable with outpatient management. The results of ED evaluation were discussed with the patient including prescriptions and/or symptomatic cares (if applicable) including appropriate and responsible use, followup plan, and return precautions. The patient verbalized understanding and felt safe for discharge. Medical Records I reviewed the patient's medical records. Lab Data I reviewed the patient's lab results. 03/31/23 16:12 03/31/23 16:12 Radiology Impressions Chest X-Ray 03/31/23 15:36 IMPRESSION: No obvious acute consolidation. Suboptimal lung base assessment. Followup including lateral view may be obtained if clinically indicated. Head CT 03/31/23 16:07 IMPRESSION: 1. No acute intracranial findings. 2. Sinus findings as above. Laboratory Results WBC 12.1 10^3/uL (4.0-10.0) H 03/31/23 16:12 RBC 4.62 10^6/uL (4.1-5.3) 03/31/23 16:12 Hgb 14.7 g/dL (11.5-15.3) 03/31/23 16:12 Hct 45.3 % (37.0-47.0) 03/31/23 16:12 MCV 98.1 fl (81-99) 03/31/23 16:12 MCH 31.8 pg (28.0-34.0) 03/31/23 16:12 MCHC 32.5 g/dL (30.0-36.0) 03/31/23 16:12 RDW 13.0 % (12.1-15.1) 03/31/23 16:12 Plt Count 205 10^3/cmm (130-400) 03/31/23 16:12 MPV 10.5 fL (7.4-10.4) H 03/31/23 16:12 Neut % (Auto) 77.8 % 03/31/23 16:12 Lymph % (Auto) 16.0 % 03/31/23 16:12 [place] % (Auto) 4.9 % 03/31/23 16:12 Eos % (Auto) 0.7 % 03/31/23 16:12 Baso % (Auto) 0.4 % 03/31/23 16:12 Neut # (Auto) 9.40 10^3/uL (1.8-7.7) H 03/31/23 16:12 Lymph # (Auto) 1.9 10^3/uL (0.8-4.8) 03/31/23 16:12 [place] # (Auto) 0.6 10^3/uL (0.2-0.9) 03/31/23 16:12 Eos # (Auto) 0.1 10^3/uL (0.0-0.8) 03/31/23 16:12 Baso # (Auto) 0.1 10^3/uL (0.0-0.1) 03/31/23 16:12 Nucleated RBC % (auto) 0 % 03/31/23 16:12 Nucleated RBCs # 0.0 /100WBC 03/31/23 16:12 Sodium 142 mmol/L (136-145) 03/31/23 16:12 Potassium 4.5 mmol/L (3.5-5.1) 03/31/23 16:12 Chloride 108 mmol/L (98-107) H 03/31/23 16:12 Carbon Dioxide 18 mmol/L (22-29) L 03/31/23 16:12 Anion Gap 20.5 (5-19) H 03/31/23 16:12 BUN 20 mg/dL (8-23) 03/31/23 16:12 Creatinine 0.9 mg/dL (0.5-0.9) 03/31/23 16:12 GFR Calculation Not Reportable 03/31/23 16:12 Glucose 107 mg/dL (65-115) 03/31/23 16:12 Calculated Osmolality 297 mOsm/kg (285-295) H 03/31/23 16:12 Calcium 9.3 mg/dL (8.5-10.5) 03/31/23 16:12 Magnesium 2.3 mg/dL (1.7-2.3) 03/31/23 16:12 Total Bilirubin 0.3 mg/dL (0.15-1.2) 03/31/23 16:12 AST 17 U/L (0-32) 03/31/23 16:12 ALT 9 U/L (0-33) 03/31/23 16:12 Alkaline Phosphatase 112 U/L (35-105) H 03/31/23 16:12 Troponin T Baseline 16 ng/L (0-10) H 03/31/23 16:12 Troponin T 120 Minute 16.00 ng/L (0-10) H 03/31/23 18:01 Delta Troponin T 0 ABS# (0-10) 03/31/23 18:01 C-Reactive Protein 3.0 mg/L (0.0-4.9) 03/31/23 16:12 NT-Pro-B Natriuret Pep 236 pg/mL (0-450) 03/31/23 16:12 Total Protein 7.1 g/dL (6.6-8.7) 03/31/23 16:12 Albumin 4.4 g/dL (3.5-5.2) 03/31/23 16:12 Globulin 2.7 g/dL (1.3-4.6) 03/31/23 16:12 Procalcitonin 0.02 ng/mL (0-0.5) 03/31/23 16:12 TSH 2.56 uIU/mL (0.27-4.20) 03/31/23 16:12 Urine Color Yellow (Yellow) 03/31/23 16:03 Urine Appearance Hazy (CLEAR) A 03/31/23 16:03 Urine pH 5 (5-7) 03/31/23 16:03 Ur Specific [place] 1.020 (1.005-1.030) 03/31/23 16:03 Urine Protein Trace (Negative) 03/31/23 16:03 Urine Glucose (UA) Norm (Normal) 03/31/23 16:03 Urine Ketones 1+ (Negative) H 03/31/23 16:03 Urine Blood 2+ (Negative) H 03/31/23 16:03 Urine Nitrate Negative (Negative) 03/31/23 16:03 Urine Bilirubin 1+ (Negative) H 03/31/23 16:03 Urine Urobilinogen 1 mg/dL (Negative) H 03/31/23 16:03 Ur Leukocyte Esterase 2+ (Negative) H 03/31/23 16:03 Urine RBC 0-4 /hpf (0-2) H 03/31/23 16:03 Urine WBC 5-10 /hpf (0-5) H 03/31/23 16:03 Ur Squamous Epith Cells 10-15 /hpf (0-5) H 03/31/23 16:03 Ur Transition Epith Cell Rare /hpf 03/31/23 16:03 Amorphous Sediment Not Reportable 03/31/23 16:03 Urine Bacteria 2+ /hpf (NONE) H 03/31/23 16:03 Discharge Plan Discharge Patient Disposition: Home Clinical Impression: Dehydration, Syncope Condition: Stable Prescriptions: No Action amlodipine 10 mg tablet 10 mg PO DAILY ergocalciferol (vitamin D2) 1,250 mcg (50,000 unit) capsule See Rx Instructions .ROUTE .COMPLEX Rx Instructions: 50,000 unit orally every other week on saturday olmesartan 40 mg tablet 40 mg PO DAILY Aspir-81 81 mg Tablet,Delayed Release (Dr/Ec) 81 mg PO DAILY Discharge Orders: Discharge ED (Routine); Ordered 03/31/23 Ordered By: Ronaldo Pineda Referrals: Suzie Hoffmann DO [Primary Care Provider] - Discharge Diet: Usual diet Discharge Activity: Increase activity as tolerated Patient Instructions: Dehydration (ED), Syncope in Older Adults (ED) Activity Restrictions/Additional Instructions: Thank you for visiting the emergency department. You were seen and evaluated for syncope. The exact cause of your symptoms is unclear however does not appear to need hospitalization at this time. I will message case management for follow-up with cardiology. Please also follow-up with your primary care provider. Return for recurrent symptoms, chest pain, shortness of breath, any new neurologic symptoms, or anything else that you are concerned about and feel needs emergency department evaluation. Coding Level of Care Code ED Databases Software Consultant for [place]
--- NOTE | 2023-03-31 15:37 | ECG_ITS ---
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 Measurements Intervals [place] Rate: 73 P: 50 [place]: 242 QRS: -81 QRSD: 166 T: 87 QT: 442 QTc: 489 Interpretive Statements ELECTRONIC VENTRICULAR PACEMAKER Compared to ECG 07/16/2021 19:32:30 No significant changes Electronically Signed On 04-01-2023 8:29:38 CDT by Samir Swift M.D. [id number]
[2023-03-31 15:51] VITALS: BP 138/72; PULSE 73; RESP 18; O2SAT 98
--- NOTE | 2023-03-31 16:07 | CTR_ITS ---
PROCEDURE INFORMATION: Exam: CT Head Without Contrast Exam date and time: 03/31/2023 5:03 PM Age: 78 years old Clinical indication: Syncope and collapse TECHNIQUE: Imaging protocol: Computed tomography of the head without contrast. Radiation optimization: All CT scans at this facility use at least one of these dose optimization techniques: automated exposure control; mA and/or kV adjustment per patient size (includes targeted exams where dose is matched to clinical indication); or iterative reconstruction. REPORTING DATA: Count of CT and Cardiac NM exams in prior 12 months: This patient has received 0 known CTs and 0 known cardiac nuclear medicine studies in the 12 months prior to the current study. COMPARISON: No relevant prior studies available. RADIATION DOSE METRICS: Total DLP (mGy-cm): 1095.24 FINDINGS: Brain: Mild periventricular and subcortical white matter hypodense changes, most likely related to chronic microvascular ischemic disease. Mild brain parenchymal atrophy. No hemorrhage. No mass effect or midline shift. Cerebral ventricles: No pathologic hydrocephalus. Paranasal sinuses: Small amount of fluid/debris in the right maxillary sinus antrum. Other remaining sinuses are clear. Mastoid air cells: Visualized mastoid air cells are well aerated. Bones/joints: Unremarkable. No acute fracture. Soft tissues: Unremarkable. CT/CT head wo con* [id number] IMPRESSION: 1. No acute intracranial findings. 2. Sinus findings as above.
[2023-03-31 16:31] LABS: Basophils # 0.1 10^3/uL (0.0-0.1); Basophils % 0.4 %; Eosinophils # 0.1 10^3/uL (0.0-0.8); Eosinophils % 0.7 %; Hematocrit 45.3 % (37.0-47.0); Hemoglobin 14.7 g/dL (11.5-15.3); Lymphocytes # 1.9 10^3/uL (0.8-4.8); Mean Corpuscular HGB Conc 32.5 g/dL (30.0-36.0); Mean Corpuscular Hemoglobin 31.8 pg (28.0-34.0); Mean Corpuscular Volume 98.1 fl (81-99); Mean Platelet Volume 10.5 fL (7.4-10.4); Monocytes # 0.6 10^3/uL (0.2-0.9); Monocytes % 4.9 %; Neutrophils % 77.8 %; Nucleated Red Blood Cells % 0 %; Platelet Count 205 10^3/cmm (130-400); Red Blood Count 4.62 10^6/uL (4.1-5.3); White Blood Count 12.1 10^3/uL (4.0-10.0)
[2023-03-31 16:47] LABS: Add Urine Microscopic? YES; Bilirubin Urine 1+ (Negative); Blood Urine 2+ (Negative); Glucose Urine UA Norm (Normal); Ketones Urine 1+ (Negative); Leukocyte Esterase Urine 2+ (Negative); Nitrate Urine Negative (Negative); Protein Urine Trace (Negative); Urine Appearance Hazy (CLEAR); Urine Color Yellow (Yellow); Urobilinogen Urine 1 mg/dL (Negative); pH Urine 5 (5-7)
[2023-03-31 16:48] LABS: Add Urine Culture? No; Bacteria Urine 2+ /hpf; RBC Urine 0-4 /hpf (0-2); Transitional Epi Cells Urine RARE /hpf
[2023-03-31 16:54] VITALS: BP 132/71; PULSE 77; RESP 18; O2SAT 97
[2023-03-31 17:10] LABS: Troponin(5th) Baseline 16 ng/L (0-10)
--- NOTE | 2023-03-31 17:25 | ECG_ITS ---
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 Measurements Intervals [place] Rate: 75 P: 48 ME: 241 QRS: -84 QRSD: 165 T: 87 QT: 437 QTc: 489 Interpretive Statements ELECTRONIC VENTRICULAR PACEMAKER Compared to ECG 03/31/2023 15:54:26 No significant changes Electronically Signed On 04-01-2023 8:36:19 CDT by Samir Swift M.D. [id number]
[2023-03-31 18:02] VITALS: BP 117/65; PULSE 76; RESP 18; O2SAT 98
--- NOTE | 2023-03-31 18:04 | PC.NURSE ---
PATIENT PACEMAKER INTERROGATED. [employer].
[2023-03-31 18:07] LABS: NT Pro B Type Natriuretic Pept 236 pg/mL (0-450); Procalcitonin 0.02 ng/mL (0-0.5); Thyroid Stimulating Hormone 2.56 uIU/mL (0.27-4.20)
[2023-03-31 18:18] LABS: Alanine Aminotransferase 9 U/L (0-33); Albumin Level 4.4 g/dL (3.5-5.2); Alkaline Phosphatase 112 U/L (35-105); Aspartate Amino Transferase 17 U/L (0-32); Blood Urea Nitrogen 20 mg/dL (8-23); Calcium 9.3 mg/dL (8.5-10.5); Carbon Dioxide 18 mmol/L (22-29); Chloride 108 mmol/L (98-107); Globulin 2.7 g/dL (1.3-4.6); Glucose 107 mg/dL (65-115); Magnesium 2.3 mg/dL (1.7-2.3); Osmolality Calculated 297 mOsm/kg (285-295); Sodium 142 mmol/L (136-145); Total Bilirubin 0.3 mg/dL (0.15-1.2); Total Protein 7.1 g/dL (6.6-8.7)
[2023-03-31 18:30] LABS: Anion Gap 20.5 (5-19); Potassium 4.5 mmol/L (3.5-5.1)
[2023-03-31 18:37] LABS: Troponin 5 2HR Delta 0 ABS# (0-10)
[2023-03-31 18:44] VITALS: BP 113/76; BP 116/74; BP 122/72; PULSE 75; PULSE 82; PULSE 88
[2023-03-31 19:02] VITALS: BP 116/74; PULSE 83; RESP 16; O2SAT 95
--- NOTE | 2023-04-01 08:21 | DCPLANNER ---
Addendum entered by Mercy Garner 04/10/23 09:12: Patient had a follow up appointment scheduled with heart care - patient did attend appointment. Original Note: nurse unit manager had message to schedule a follow up appointment for patient with cardiology. nurse unit manager sent patients information to the front office staff at heart care. Patients information will be printed and reviewed. Clinic will call patient with appointment information.
--- NOTE | 2023-04-04 11:08 | DCPLANNER ---
Addendum entered by Mercy Garner 05/03/23 11:46: senior licensing manager received notification from centralized scheduling that when patient was called to schedule the appointments, patient said to make the orders inactive until she can speak with her primary care physician, and can afford to get these tests done. Original Note: senior licensing manager had message to schedule an outpatient ultrasound and echocardiogram for patient. senior licensing manager faxed signed orders to centralized scheduling, who will call patient with appointment information.
== END 2023-03-31 19:01 | disposition home or self-care (01) ==
PROVIDERS: Emergency Provider Emergency Medicine; PCP Family Medicine
DX: R55 Syncope and collapse (principal); E86.0 Dehydration; Z79.82 Long term (current) use of aspirin; I12.9 Hypertensive chronic kidney disease with stage 1 through stage 4 chronic kidney disease, or unspecified chronic kidney disease; N18.9 Chronic kidney disease, unspecified; Z95.0 Presence of cardiac pacemaker; F17.210 Nicotine dependence, cigarettes, uncomplicated
CPT/HCPCS: 36415; 70450; 71045; 80053; 81001; 83735; 83880; 84145; 84443; 84484; 85025; 86140; 87040; 93005; 99285

== ENCOUNTER → 2023-04-08 09:52 | Outpatient (BNVA) | payer MEDICARE, SELFPAY | PROVIDERS: PCP Family Medicine; Visit Provider Nurse Practitioner Family | DX: I95.1 Orthostatic hypotension (principal); F17.200 Nicotine dependence, unspecified, uncomplicated | CPT/HCPCS: 99213 ==

== ENCOUNTER → 2023-05-09 14:50 | Outpatient (BNVA) | payer MEDICARE, SELFPAY | PROVIDERS: PCP Family Medicine; Visit Provider Internal Medicine Cardiovascular Disease | DX: Z45.010 Encounter for checking and testing of cardiac pacemaker pulse generator [battery] (principal) | CPT/HCPCS: 93296 ==

== ENCOUNTER → 2023-07-22 10:44 | Outpatient (BNVA) | payer MEDICARE, SELFPAY | PROVIDERS: PCP Family Medicine; Visit Provider Internal Medicine Cardiovascular Disease | DX: Z95.0 Presence of cardiac pacemaker (principal); I12.9 Hypertensive chronic kidney disease with stage 1 through stage 4 chronic kidney disease, or unspecified chronic kidney disease; N18.30 Chronic kidney disease, stage 3 unspecified; F17.200 Nicotine dependence, unspecified, uncomplicated; Z87.898 Personal history of other specified conditions | CPT/HCPCS: 99214 ==

== ENCOUNTER → 2023-11-06 11:16 | Outpatient (BNVA) | payer MEDICARE, SELFPAY | PROVIDERS: PCP Family Medicine; Visit Provider Internal Medicine Cardiovascular Disease | DX: Z45.010 Encounter for checking and testing of cardiac pacemaker pulse generator [battery] (principal) | CPT/HCPCS: 93296 ==

== ENCOUNTER → 2024-01-16 14:26 | Outpatient (BNVA) | payer MEDICARE, SELFPAY | PROVIDERS: PCP Family Medicine; Visit Provider Internal Medicine Cardiovascular Disease | DX: I12.9 Hypertensive chronic kidney disease with stage 1 through stage 4 chronic kidney disease, or unspecified chronic kidney disease (principal); N18.30 Chronic kidney disease, stage 3 unspecified; Z95.0 Presence of cardiac pacemaker; I95.1 Orthostatic hypotension; R60.9 Edema, unspecified; F17.210 Nicotine dependence, cigarettes, uncomplicated | CPT/HCPCS: 99214 ==

== ENCOUNTER → 2024-07-22 14:04 | Outpatient (BNVA) | payer MEDICARE, SELFPAY | PROVIDERS: PCP Family Medicine; Visit Provider Internal Medicine Cardiovascular Disease | DX: Z95.0 Presence of cardiac pacemaker (principal); I12.9 Hypertensive chronic kidney disease with stage 1 through stage 4 chronic kidney disease, or unspecified chronic kidney disease; N18.9 Chronic kidney disease, unspecified; F17.200 Nicotine dependence, unspecified, uncomplicated | CPT/HCPCS: 99214 ==

== ENCOUNTER → 2024-08-12 10:20 | Outpatient (BNVA) | payer MEDICARE, SELFPAY | PROVIDERS: PCP Family Medicine; Visit Provider Internal Medicine Cardiovascular Disease | DX: Z45.018 Encounter for adjustment and management of other part of cardiac pacemaker (principal) | CPT/HCPCS: 93296 ==

== ENCOUNTER 2024-11-20 14:35 | Outpatient (CLI) | payer MEDICARE, SELFPAY ==
--- NOTE | 2024-11-20 14:38 | XR_ITS ---
WS: [id number] SCREENING DEXA SCAN [employer] CLINICAL INFORMATION: HX OF OSTEOPENIA/ASYMPTOMATIC POSTMENOPAUSAL STATE COMPARISON: None. FINDINGS: The L1-L4 bone mineral density measures 1.05. This corresponds to a T score score of -1.2 and Z score of 0.7. Left femoral neck bone mineral density measures 0.680 g/cm2. This corresponds to a T score of -2.6 and Z score of -0.5. Right femoral neck bone mineral density measures 0.692 g/cm2. This corresponds to a T score -2.5of and Z score of -0.4. Mean femoral neck bone mineral density measures 0.686 g/cm2. This corresponds to a T score of -2.6 and Z score of -0.4. XR/XR DEXA axial skeleton* [id number] IMPRESSION: Osteopenia lumbar spine. Osteoporosis femoral necks. Patient's FRAX calculated 10 year probability for major osteoporotic fracture i s 20.3% and osteoporotic hip fracture is 10.8%.
== END 2024-11-20 14:36 | disposition home or self-care (01) ==
PROVIDERS: PCP Family Medicine; Visit Provider Nurse Practitioner Family
DX: Z78.0 Asymptomatic menopausal state (principal); M81.0 Age-related osteoporosis without current pathological fracture
CPT/HCPCS: 77080

== ENCOUNTER → 2025-07-22 13:43 | Outpatient (BNVA) | payer MEDICARE, SELFPAY | PROVIDERS: PCP Family Medicine; Visit Provider Internal Medicine Cardiovascular Disease | DX: I12.9 Hypertensive chronic kidney disease with stage 1 through stage 4 chronic kidney disease, or unspecified chronic kidney disease (principal); N18.9 Chronic kidney disease, unspecified; I95.1 Orthostatic hypotension; Z95.0 Presence of cardiac pacemaker; F17.200 Nicotine dependence, unspecified, uncomplicated | CPT/HCPCS: 99214 ==